=== PATIENT | male | born 1975 | race Caucasian/White ===

== ENCOUNTER 2023-07-27 09:59 | Emergency (ER) | payer BC, SELFPAY ==
--- NOTE | 2023-07-27 10:00 | ED.SKABFB ---
HPI - Skin/Abscess/Foreign Bdy General Chief complaint: Skin/Abscess/Foreign Body Stated complaint: Poison Karo Time Seen by Provider: 07/27/23 10:00 Source: patient Mode of arrival: ambulatory Limitations: no limitations History of Present Illness HPI narrative: Evan is a 47-year-old male patient presenting to the clinic today with complaints of a rash to his face, arms, legs, and genitals. He reports he thinks it may be from poison karo. Over the weekend he was cutting down some ector. Related Data Home Medications Medication Instructions Recorded Confirmed atorvastatin 10 mg tablet 10 mg PO DAILY 07/27/23 07/27/23 lisinopril 10 mg tablet 10 mg PO DAILY 07/27/23 07/27/23 meloxicam 7.5 mg tablet 7.5 mg PO DAILY 07/27/23 07/27/23 Allergies Allergy/AdvReac Type Severity Reaction Status Date / Time No Known Allergies Allergy Unknown Verified 07/27/23 10:13 Review of Systems Review of Systems: Pertinent positives per HPI. Patient denies any fever, chills, headache, visual changes, dizziness, cough, shortness of breath, chest pain, palpitations, nausea, vomiting, diarrhea, constipation, abdominal pain, or any urinary issues. PMFSH Past Medical History Medical History (Updated 07/27/23 @ 10:23 by Barrett Licea APRN) Back pain with right-sided radiculopathy Contact dermatitis Nodule of skin of right foot Obesity, Class II, BMI 35-39.9 Prostate cancer screening Wellness examination Family History Family History Mother Hypertension High cholesterol Father High cholesterol Hypertension Grandparent High cholesterol Social History Social History Smoking status: Never smoker Second hand tobacco smoke exposure: No Alcohol intake: current Drinks per week: 4 Alcohol use details: consumes 4 beers weekly Substance use: never Substance use type: does not use Gender identity (if verbalized by the patient): Male Comments At the time of my signature, I reviewed and agree with the nursing past medical, surgical, social, and family history. There is no relevant family history pertinent to the patient complaint. Exam Narrative: General: Well-developed, well nourished, in no apparent distress Head: Normocephalic, atraumatic. Cardio: Regular rate and rhythm, s1 and s2 normal, no murmur appreciated. Resp: Clear to auscultation bilaterally, no rhonchi, rales, wheezing or rubs. Integumentary: Hiram, warm, and dry, intact without lesion, red, itchy, blistery rash to the right side of the face, left side cheek, genitals, bilateral upper arm, and bilateral inner thighs. Course Course Emergency Course: Portions of this record may have been created with voice recognition software. Level of Care: Express Care Visit Vital Signs Vital signs: Vital signs reviewed MDM - Skin/Abscess/Foreign Bdy MDM Narrative Medical decision making narrative: At the time of visit patient is resting comfortably on the exam table. Patient appears to be nontoxic. Plan: Dexamethasone 10 mg IM given in the clinic today. Prescription for 10 day course tapered prednisone and triamcinolone cream was sent to the pharmacy. Supportive measures were discussed with the patient and they voiced understanding discharge instructions and agrees to treatment plan. Return precautions reviewed Differential Diagnosis Differential diagnosis: Likely abscess of skin or subcutaneous tissue, viral exanthem, urticaria, cellulitis, eczema, insect bites and contact dermatitis Discharge Plan Discharge Clinical Impression: Allergic contact dermatitis due to plant Patient Disposition: Home, Self-Care Condition: Stable Instructions: Antibiotic Form, Poison Karo (ED) Additional Instructions: Dexamethasone 10 mg IM given in the clinic today. Apply triamcinolone cream as directed Take prednisone as dire
[2023-07-27 10:14] VITALS: BP 134/86; PULSE 65; RESP 16; TEMP 36.5; O2SAT 100
[2023-07-27] MEDS: dexAMETHasone SOD PHOS INJ 10 MG/ML 1 ML VIAL IM (10:27)
== END 2023-07-27 10:38 | disposition home or self-care (01) ==
PROVIDERS: Emergency Provider Nurse Practitioner Family
DX: L23.7 Allergic contact dermatitis due to plants, except food (principal); E66.9 Obesity, unspecified; Z68.36 Body mass index [BMI] 36.0-36.9, adult
CPT/HCPCS: 96372; 99213; G0463; J1100